=== PATIENT | male | born 2005 | race Caucasian/White ===

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

== ENCOUNTER 2024-09-26 20:19 | Emergency (ER) | payer MEDICAID ==
[~2024-09-26] VITALS: Ht 172.7 cm; Wt 73.0 kg
[2024-09-26 20:22] VITALS: TEMP 97.9; O2SAT 98
[2024-09-26 20:27] VITALS: O2SAT 99
[2024-09-26] MEDS: ONDANSETRON HCL 4MG/2ML INJ IV STA (20:31)
[2024-09-26] MEDS: MORPHINE SULFATE 4 MG/ML INJ (FOR IV/IM USE) IV STA (20:31)
[2024-09-26] MEDS: SODIUM CHLORIDE 0.9% 1,000 ML IV ONE (20:45)
[2024-09-26 21:57] LABS: CARBON DIOXIDE 24 mEq/L (21-32)
[2024-09-26 21:58] LABS: BASOPHILS % 0.4 % (0.0-2.0); CALCIUM 9.7 mg/dL (8.7-10.4); CHLORIDE 105 mEq/L (98-107); EOSINOPHILS % 1.3 % (0.0-5.0); HEMATOCRIT. 47.2 % (42.0-52.0); HEMOGLOBIN. 15.7 g/dL (14.0-18.0); LYMPHOCYTES % 24.1 % (20.0-50.0); MEAN CORPUSCULAR HEMOGLOBIN 32.2 pg (28.0-32.0); MEAN CORPUSCULAR HGB CONC 33.3 g/dL (31.0-37.0); MEAN CORPUSCULAR VOLUME 96.5 fL (80.0-94.0); NEUTROPHILS % 65.2 % (40.0-76.0); PLATELET 213 x1000/uL (130-400); POTASSIUM 3.8 mEq/L (3.5-5.1); RED BLOOD CELL COUNT 4.89 mill/uL (4.7-6.1); RED CELL DISTRIBUTION WIDTH 13.3 % (11.6-14.6); SODIUM 138 mEq/L (136-145); WHITE BLOOD COUNT 8.3 x1000/uL (4.5-11.0)
[2024-09-26 22:02] LABS: CREATININE 0.9 mg/dL (0.6-1.3)
[2024-09-26 22:03] LABS: GLUCOSE 121 mg/dL (70-105); UREA NITROGEN BLOOD 10 mg/dL (9-23)
[2024-09-26 22:04] LABS: ALANINE AMINOTRANSFERASE 54 IU/L (10-49); ALBUMIN 4.9 g/dL (3.2-4.8); ASPARTATE AMINOTRANSFERASE 46 IU/L (<34)
[2024-09-26 22:05] LABS: BILIRUBIN DIRECT 0.1 mg/dL (<=3.0); BILIRUBIN TOTAL 0.5 mg/dL (0.1-1.0); PROTEIN TOTAL 7.8 g/dL (6.0-8.3)
[2024-09-26 22:08] LABS: TROPONIN I HIGH SENSITIVITY < 4 ng/L (3.0-53)
[2024-09-26] MEDS ORDERED: MORPHINE SULFATE 2 MG/ML INJ (NOT FOR IM USE) IV ONE (22:45)
[2024-09-27] MEDS ORDERED: IOHEXOL-300 100 ML BOTTLE ONE (01:19)
[2024-09-27] MEDS ORDERED: NAPR-1176 MT (01:37)
[2024-09-27] MEDS ORDERED: LIDO700A15 TP (01:37)
[2024-09-27 02:58] VITALS: BP 129/72; PULSE 99; RESP 18
[2024-09-27] MEDS: KETOROLAC 15MG/ML VIAL IV ONE (02:58)
[2024-09-27] MEDS: ONDANSETRON HCL 4MG/2ML INJ IV ONE (02:58)
== END 2024-09-27 02:59 | disposition home or self-care (01) ==
LOC: ER 20:19
DX: S29.9XXA Unspecified injury of thorax, initial encounter (principal); Z79.1 Long term (current) use of non-steroidal anti-inflammatories (NSAID); W18.39XA Other fall on same level, initial encounter; Y93.89 Activity, other specified; Y92.89 Other specified places as the place of occurrence of the external cause; Y99.8 Other external cause status
CPT/HCPCS: 80076; 80048; 83690; 85025; 84484; 36415; 71045; 73030; 71250; 74176; 93005; 96361; 96374; 96375 ×2; 99285; 71260; 74177; 96376; J2405 ×2; J2270 ×2; J7030; Z7610; Q9967; J1885